=== PATIENT | male | born 1960 | race Caucasian/White ===

== ENCOUNTER 2024-05-04 18:05 | Inpatient (IN) | payer BC, SELFPAY ==
[2024-05-04 16:15] VITALS: BP 112/94
[2024-05-04 16:37] VITALS: BMI 28.9
[2024-05-04 16:40] VITALS: BP 107/73
[2024-05-04 17:00] VITALS: BP 101/72
[2024-05-04 17:03] LABS: % Basophils 0.5 % (0-2); % Eosinophils 1.4 % (0-6); % Immature Granulocytes 0.5 % (0-0.5); % Lymphocytes 16.4 % (20.5-51.1); % Monocytes 5.9 % (1.7-9.3); % Neutrophils 75.3 % (42.2-75.2); Absolute Basophils 0.1 10^3/uL (0-0.2); Absolute Eosinophils 0.2 10^3/uL (0-0.7); Absolute Immature Granulocytes 0.1 10^3/uL (0-0.05); Absolute Lymphocytes 2.5 10^3/uL (1.2-3.4); Absolute Monocytes 0.9 10^3/uL (0.1-0.6); Absolute Neutrophils 11.5 10^3/uL (1.4-6.5); Hematocrit 42.2 % (39.0-52.0); Hemoglobin 13.8 g/dL (13.0-18.0); Mean Corp Hgb Conc. 32.7 g/dL (33.0-37.0); Mean Corpuscular Hgb 29.3 pg (27.0-31.0); Mean Corpuscular Volume 89.6 fL (80.0-94.0); Nucleated Red Blood Cells % 0 % (-); Platelet Count 240 10^3/uL (130-400); Red Blood Cell Count 4.71 10^6/uL (4.70-6.10); Red Cell Dist. Width 13.8 % (11.5-14.5); White Blood Cell Count 15.2 10^3/uL (4.8-10.8)
--- NOTE | 2024-05-04 17:12 | ED.GENMED ---
History of Present Illness
General
Chief Complaint: Vomiting Blood
Source: patient and spouse
Exam Limitations: none
Time Seen by Provider: 05/04/24 17:00
History of Present Illness
History of Present Illness:
64-year-old healthy male presents with sudden onset of lightheadedness disequilibrium followed by vomiting. Vomiting was instantly bright red blood. Vomited x 3. Describing 2 to 300 cc of bright red blood. No pain no chest pain no shortness of
breath no history of same. No NSAIDs. No significant alcohol history.
Past History
Past History
ED Past Medical History: Hypercholesterolemia and NIDDM
ED Past Surgical History: Orthopedic and Other (Meningioma/skin cancer)
Review of Systems
Review of Systems
All Other Systems: Not applicable
Respiratory: Reports no symptoms
Cardiac: Reports no symptoms
ABD/GI: Denies abdominal pain, bloody stools or black stools
Phy Exam
Physical Exam
Physical Exam:
GENERAL: Alert and oriented in no apparent distress. Mildly pale
EYE: Orbits normal.
NECK: Supple, no significant adenopathy.
ENT: Pharynx without erythema
CARDIAC: Mildly tachycardic and regular no murmur
LUNGS: Clear breath sounds,normal
ABDOMEN: Soft, without focal tenderness or distention
NEUROLOGICAL: Alert and oriented , grossly non-focal
SKIN: Warm and dry, no rash or lesion, no discoloration, skin intact.
MUSCULOSKELETAL: No edema,no deformity.Good color
PSYCH: Normal and appropriate interaction.
Course
Orders/Labs/Results
Orders:
Orders
05/04/24 16:47
Type+Screen Urgent
Complete Blood Count/With Diff Urgent
Comprehensive Metabolic Panel Urgent
05/04/24 17:13
Pantoprazole 80 mg/100 ml Nss [Protonix] 80 mg in 100 ml IV NOW
Pantoprazole [Protonix IV] 80 mg IV NOW STA
05/04/24 17:15
CT Chest/abd/pelvis Angio W/wo Urgent
Comment:
Reason For Exam: sudden ugi bleed
IV Insert/Care/Rem.- Treatment PRN
05/04/24 17:19
ABO2 Urgent
BBK Wristband Number:
Associate notified that ABO2 has been ordered: [id number]
Date: 05/04/24
Time: 17:03
Stitchdown Toe Former ID: [id number]
05/04/24 17:24
0.9% Sodium Chloride 1000 ml [Nss] 1,000 ml IV BOLUS
05/04/24 17:44
Admit/Transfer Patient As Directed
Co-Sign Provider:
Level of Care: Inpatient admission
Assign to:: Medical/Surgical
Physician / Group: alexander
Diagnosis: GI bleed
Reason for Hospitalization: GI bleed
Expected length of stay greater than two midnights?: Yes
ELOS- Estimated Length of Stay in days: 3
I certify the patient meets the requirements for IP care: Yes
PRN Pain Medication Management As Directed
May give lesser potent ordered pain med per pt: Yes
preference::
Protocol:: Medication orders for pain may be administered in a
manner that supports deferring to patient preference
when the pt is:
- Requesting an ordered lesser potent pain medication.
Least to most potent pain medications are defined
as: acetaminophen < NSAID < tramadol < opioids
(morphine, oxycodone, hydromorphone).
- Requesting a lesser dose of the same medication IF
ORDERED.
- Requesting a less intrusive route of administration
if both routes are prescribed by the provider (PO <
IV).
05/04/24 17:45
Code Status As Directed
Resuscitation Status: Full Code
Abnormal Lab Results
05/04/24
16:47
WBC 15.2 H 10^3/uL
(4.8-10.8)
MCHC 32.7 L g/dL
(33.0-37.0)
Abs Immat Gran (auto) 0.1 H 10^3/uL
(0-0.05)
Absolute Neuts (auto) 11.5 H 10^3/uL
(1.4-6.5)
Absolute Monos (auto) 0.9 H 10^3/uL
(0.1-0.6)
Neutrophils % 75.3 H %
(42.2-75.2)
Lymphocytes % 16.4 L %
(20.5-51.1)
BUN 30 H mg/dl
(9-20)
Glucose 144 H mg/dl
(70-99)
Alkaline Phosphatase 36 L U/L
(38-126)
Total Protein 6.2 L g/dl
(6.3-8.2)
05/04/24 16:47
05/04/24 16:47
Vital Signs
Initial and Last Documented VS:
Initial Vital Signs
Pulse Resp BP Pulse Ox
127 20 112/94 96
05/04/24 16:15 05/04/24 16:15 05/04/24 16:15 05/04/24 16:15
Last Documented Vital Signs
Temp Pulse Resp BP Pulse Ox
98.5 F 97 18 121/77 94
05/04/24 16:20 05/04/24 18:45 05/04/24 18:45 05/04/24 18:00 05/04/24 18:45
MDM/Problems Addressed
Differential Diagnosis Includes:
Patient describing sudden onset of upper GI bleed. Described as a fairly significant amount. Bright red blood. No nosebleed no blood in the oropharynx. Abdomen is nontender. Not describing a Simi-Kim tear. No history of varices or
cirrhosis. No history of NSAIDs. Discussed with GI. Start Protonix. CT angiography. 2 IVs. IV fluids. Consent signed. Admit to medicine.
*Radiology
Radiology exam reviewed: radiology read reviewed (Heterogeneous material in the stomach. No aneurysm. No obvious bleeding source)
*Pulse Oximetry
Patient hypoxic: no
*Hand I Tube Bender Interpretation
Rate: tachycardiac
Interpretation: abnormal
Heart Rate: 104
Rhythm: sinus
*Critical Care Note
Total Time (30-74mins, 75-104mins- exclusive of procedures): 45
ED Attending Note
-
Portions of this chart may have been created with voice recognition software.� Occasional wrong word or��sound alike� substitutions may have occurred due to the inherent limitations of voice recognition software.
Discharge Plan
Departure
Patient Disposition: Admit
Date of Disposition: 05/04/24
Time of Disposition: 17:30
Presentation/result/management discussed w/ accepting MD/DO: Do(GI)
Discharge Problem:
Upper GI bleed
Interventions
Interventions:
*Risk Screen - Suicide Last Done: 05/04/24 16:15
*General Assessment Last Done: 05/04/24 16:15
*Neglect/Abuse Screening Last Done: 05/04/24 16:15
ED- Fall Risk Assessment Last Done: 05/04/24 16:37
*ED COVID-19 Vaccine History Last Done: 05/04/24 16:37
HI-Edhkzq-Tfhcpzmcnd Assessment Last Done: 05/04/24 16:53
ED- Cardiac Assessment Last Done: 05/04/24 16:53
ED- Pulmonary Assessment Last Done: 05/04/24 16:53
[2024-05-04] MEDS: PROTONIX IV 80 MG IV (17:23)
[2024-05-04 17:28] LABS: ALT (SGPT) 26 U/L (0-50); AST (SGOT) 23 U/L (17-59); Albumin 4.1 g/dl (3.5-5.0); Alkaline Phosphatase 36 U/L (38-126); Blood Urea Nitrogen 30 mg/dl (9-20); Calcium 9.2 mg/dl (8.4-10.2); Carbon Dioxide 22 mmol/L (22-30); Chloride 106 mmol/L (98-107); Estimated Creatinine Clearance 95 ml/min; Glucose 144 mg/dl (70-99); Potassium 4.7 mmol/L (3.5-5.1); Sodium 140 mmol/L (135-145); Total Bilirubin 0.2 mg/dl (0.2-1.3); Total Protein 6.2 g/dl (6.3-8.2); eGFR > 60.00
--- NOTE | 2024-05-04 17:30 | HPS.HSE ---
Family Physician
-
Family Physician:
Chief Complaint
-
vomiting
History of Present Illness
64-year-old with PMH for type 2 Dm, HLD presents with sudden onset of lightheadedness disequilibrium followed by vomiting. Vomiting was instantly bright red blood. Vomited x 3. No pain no chest pain no shortness of breath he takes ibuprofen as
needed. he took 600mg on Monday. denied abdominal pain or rectal bleed. denied dysuria or hematuria.
hgb stable. admitting for further management.
stated coloscopy five years ago.
Medical History
Past Medical History
Past Medical History: Reports Other
Additional Past Medical History:
Basal cell skin cancer
Right breast lump
Meningioma
Past Surgical History: Reports Other
Additional Past Surgical History:
Right breast lumpectomy
Brain tumor removal
discectomy
LASIK and cataract surgery
Mohs surgery on her right forearm and scalp
Social History
Tobacco: Smoker
Alcohol: Occasional
Drug: None
Personal:
Living: With Family
Family History
Family History: Not pertinent
Allergies / Home Medications
Allergies reflects when Allergies were last updated in [employer].
Home Medications with original date entered in [employer]
Allergy/Medication List:
Allergies
Allergy/AdvReac Type Severity Reaction Status Date / Time
acetaminophen [From Percocet] Allergy Nausea / Verified 05/04/24 16:19
Vomiting
oxycodone [From Percocet] Allergy Nausea / Verified 05/04/24 16:19
Vomiting
Home Medications
aspirin 81 mg chewable tablet 81 mg PO DAILY 05/04/24
cholecalciferol (vitamin D3) 25 mcg (1,000 unit) tablet (Vitamin D3) 25 mcg PO DAILY 05/04/24
ibuprofen 200 mg tablet 600 mg PO DAILYPRN PRN mild pain 05/04/24
metformin 500 mg tablet 500 mg PO BID 05/04/24
peg 400-propylene glycol (PF) 0.4 %-0.3 % eye drops in a dropperette (Systane (PF)) 1 drp BOTH EYES Q6HPRN PRN dry eyes 05/04/24
rosuvastatin 20 mg tablet 20 mg PO DAILY 05/04/24
tadalafil 20 mg tablet 20 mg PO DAILYPRN PRN ed 05/04/24
Review of Systems
-
Constitutional: Reports No Symptoms
EENT: Reports No Symptoms
Respiratory: Reports No Symptoms
Cardiac: Reports No Symptoms
Abdomen/GI: Reports Vomiting
: Reports No Symptoms
Musculoskeletal: Reports No Symptoms
Skin: Reports No Symptoms
Neurological: Reports No Symptoms
Endocrine: Reports No Symptoms
Hematologic/Lymphatic: Reports No Symptoms
Psych: Reports No Symptoms
Physical Exam
Vital Signs
Vital Signs
Temp Pulse Resp BP Pulse Ox
98.5 F 127 20 101/72 94
05/04/24 16:20 05/04/24 16:15 05/04/24 16:15 05/04/24 17:00 05/04/24 17:00
Physical Exam
General: Well Developed, Well Nourished and No Apparent Distress
HEENT: NormoCephalic, Moist mucous membranes and Atraumatic
Respiratory: Clear
Cardiac: S1/S2 and Regular Rhythm; No Murmur or Rub
GI: Soft, Non Tender, Non Distended and Normal Bowel Sounds; No Organomegaly
Rectal: Deferred by Provider
Musculoskeletal: No Clubbing, No Cyanosis and No Edema
Skin: No Rash
Neuro: AO x 3 and Nonfocal/grossly intact
Psych: Calm
Laboratory Results
-
05/04/24 16:47
05/04/24 16:47
Laboratory Results
Total Bilirubin 0.2 mg/dl (0.2-1.3) 05/04/24 16:47
AST 23 U/L (17-59) 05/04/24 16:47
ALT 26 U/L (0-50) 05/04/24 16:47
Alkaline Phosphatase 36 U/L (38-126) L 05/04/24 16:47
Data Reviewed
-
Lab Data: Labs Reviewed by me
Impression/Plan
-
# Upper GI bleed
-Hemoglobin stable at 13.8
-CT abdomen pelvis pending
-IV PPI
-NPO
-GI consult
# Leukocytosis likely stress reaction
-WBCs 15.2
-patient is afebrile
-ctm
# Type 2 diabetes
-Sliding scale
-Hold metformin
# Hyperlipidemia
-Statin
# DVT prophylaxis
-SCDs
# CODE STATUS
-Full code
[2024-05-04] MEDS: PROTONIX 100 IV (17:31)
[2024-05-04] MEDS: NSS 1000 IV (17:34)
[2024-05-04 18:00] VITALS: BP 121/77
--- NOTE | 2024-05-04 19:40 | W.PN.UPDATE ---
Update Note
Progress Note Update
Attending addendum
64-year-old man with type 2 Dm, comes in with sudden onset of lightheadedness, disequilibrium and then vomiting. Vomiting was instantly bright red blood. Vomited x 3. No pain no chest pain, shortness of breath. He takes ibuprofen as needed, and
he took 600mg on Monday. He also takes 81 mg of ASA daily.
Past Medical History
Basal cell skin cancer
Right breast lump
Meningioma
Past Surgical History: Reports Other
Additional Past Surgical History:
Right breast lumpectomy
Brain tumor removal
discectomy
LASIK and cataract surgery
Mohs surgery on her right forearm and scalp
Physical Exam
General: Well Developed, Well Nourished and No Apparent Distress
HEENT: NormoCephalic, Moist mucous membranes and Atraumatic
Respiratory: Clear
Cardiac: S1/S2 and Regular Rhythm; No Murmur or Rub
GI: Soft, Non Tender, Non Distended and Normal Bowel Sounds; No Organomegaly
Psych: Calm
Impression/Plan
1. Upper GI bleed
NPO
IV PPI
GI consult
2. Please see midlevel for full details on:
Leukocytosis
Type 2 diabetes
Hyperlipidemia
[2024-05-04 19:45] VITALS: BP 114/68; BMI 30.2
--- NOTE | 2024-05-04 22:35 | PTCARENOTE ---
1943 Received patient from ED via stretcher with spouse at bedside. Medsurg orders. VSS> afebrile, HR 92, RR 18, BP 114/68, pox 97% room air.
No c/o pain. Patient AAOx3, steady on his feet. PPI infusing 8mg/hr through RAC#20. PMH, medications, and plan of care reviewed by this RN and patient. Patient oriented to room, call flynn within reach.
[2024-05-04 23:10] VITALS: BP 100/60; BP 105/64; BP 98/43; PULSE 71; PULSE 83; PULSE 92
[2024-05-05 00:09] LABS: Glucose - Point of Care 118 mg/dl (70-99)
[2024-05-05 01:49] LABS: Hematocrit 33.1 % (39.0-52.0); Hemoglobin 11.1 g/dL (13.0-18.0)
[2024-05-05 03:35] VITALS: BP 102/58; BP 108/59; BP 98/54; PULSE 67; PULSE 75; PULSE 87
[2024-05-05 06:13] LABS: Glucose - Point of Care 120 mg/dl (70-99)
[2024-05-05 07:00] VITALS: BP 106/64; BP 108/62; BP 111/64; BP 92/65; PULSE 69; PULSE 70; PULSE 82
[2024-05-05 08:15] LABS: Glucose - Point of Care 129 mg/dl (70-99)
[2024-05-05] MEDS: CRESTOR 20 MG PO (08:45)
[2024-05-05] MEDS: PROTONIX IV 40 MG IV ×2 (08:45→20:06)
[2024-05-05] MEDS: FLUSH (NSS) 1 FLUSH IV (08:46)
[2024-05-05] MEDS: NSS (PRESERVATIVE FREE) 10 ML IV ×2 (08:46→20:06)
[2024-05-05 09:09] LABS: Hematocrit 34.8 % (39.0-52.0); Hemoglobin 11.7 g/dL (13.0-18.0)
[2024-05-05 09:14] LABS: Hematocrit 35.2 % (39.0-52.0); Hemoglobin 11.7 g/dL (13.0-18.0); Mean Corp Hgb Conc. 33.2 g/dL (33.0-37.0); Mean Corpuscular Hgb 30.2 pg (27.0-31.0); Mean Platelet Volume 9.8 fL (7.4-10.4); Platelet Count 178 10^3/uL (130-400); Red Blood Cell Count 3.87 10^6/uL (4.70-6.10); White Blood Cell Count 7.7 10^3/uL (4.8-10.8)
[2024-05-05 09:24] LABS: Blood Urea Nitrogen 39 mg/dl (9-20); Calcium 8.5 mg/dl (8.4-10.2); Carbon Dioxide 27 mmol/L (22-30); Chloride 109 mmol/L (98-107); Estimated Creatinine Clearance 106 ml/min; Glucose 123 mg/dl (70-99); Potassium 4.5 mmol/L (3.5-5.1); Sodium 141 mmol/L (135-145); eGFR > 60.00
--- NOTE | 2024-05-05 11:44 | W.PN.HOSP.TC ---
Today's Communication/Plan
-
monitor vitals
see plan
IV PPI
Continue to monitor bleeding
Clears
GI
Assessment / Plan
Assessment / Plan
General: Well Developed, Well Nourished and No Apparent Distress
HEENT: NormoCephalic, Moist mucous membranes and Atraumatic
Respiratory: Clear
Cardiac: S1/S2 and Regular Rhythm; No Murmur or Rub
GI: Soft, Non Tender, Non Distended and Normal Bowel Sounds
Musculoskeletal:No Edema
Neuro: AO x 3 and Nonfocal/grossly intact
Psych: Calm
Upper GI bleed
was using intermittent NSAIDS; denies recent travel
no hx of PUD
-CT abdomen pelvis without acute bleed
-IV PPI
clears; NPO past midnight
-GI evaluation
# Leukocytosis likely stress reaction
resolved
-patient is afebrile
-ctm
# Type 2 diabetes
-Sliding scale
-Hold metformin
# Hyperlipidemia
-Statin
# DVT prophylaxis
-SCDs
# CODE STATUS
-Full code
Anticipated Discharge: 24 - 48 hours
Subjective/Interval History
-
Date of Service: May 05, 2024
denies abdominal pain
Objective Data
-
Labs:
Laboratory Results
05/05/24 05/05/24 05/05/24
01:20 08:59 08:59
WBC 7.7
Hgb 11.1 L 11.7 L 11.7 L
Hct 33.1 L 35.2 L
Plt Count
Sodium
Potassium
Chloride
Carbon Dioxide
BUN
Creatinine
Glucose
Calcium
05/05/24 05/05/24
08:59 17:00
WBC
Hgb Pending
Hct 34.8 L Pending
Plt Count 178 D
Sodium 141
Potassium 4.5
Chloride 109 H
Carbon Dioxide 27
BUN 39 H
Creatinine 0.8
Glucose 123 H
Calcium 8.5
Vital Signs:
Vital Signs
Temp Pulse Resp BP Pulse Ox
97.9 F 72 16 108/62 95
05/05/24 07:00 05/05/24 07:00 05/05/24 07:00 05/05/24 07:00 05/05/24 07:00
I&O
05/04/24 05/05/24 05/06/24
06:59 06:59 06:59
Intake Total 80 / 80
Balance 80 / 80
--- NOTE | 2024-05-05 12:17 | PTCARENOTE ---
Pt at bedside. Pt stated, 'My has been O positive his entire life, it is on his dog tag from the and that is what they said when he was getting his brain surgery done at [place] in 2017'. made aware, blood bank called.
MD ordered blood bank tests. Labs to be drawn.
[2024-05-05 12:21] LABS: Glycohemoglobin (HgbA1c) 6.5 % (4.0-5.6)
[2024-05-05 12:22] VITALS: BP 111/63; BP 114/73; BP 125/65; PULSE 70; PULSE 76; PULSE 82
[2024-05-05 12:26] LABS: Glucose - Point of Care 122 mg/dl (70-99)
--- NOTE | 2024-05-05 12:26 | CON.GI ---
Consultation
-
Date/Time Consultation Requested: 05/04/2024 1944
Date/Time Consultation Performed: 05/05/24 1130
Requesting Provider: Marlen DIXON
Performing Provider: Dr Julieta Flores
Reason for Consultation: hematemesis
Medical History
Chief Complaint / HPI
Chief Complaint: vomiting blood
History of Present Illness:
64yo M with h/o DM and HL who presents with acute vomiting of red blood x3. He has once weekly dsyphagia to solid foods. There is reflux and heartburn. He around noon ate steak sandwich it was stuck for some time. Later on after vomiting it up
he noticed 3 episodes of fresh vomiting of pure blood. He is not on AC or NSAIDs. There was some lightheadedness. He presented to ER for evaluation. No prior h/o GIB. No prior EGD.
Past Medical History
Past Medical History: Other (DM, HL dysphagia)
Past Surgical History: Other (Discectomy, Brain tumor removal for meningioma, R breast lumpectomy MOH surgery LASIK)
Social History
Tobacco: Smoker
Alcohol: Occasional
Drug: None
Personal:
Living: With Family
Family History
Family History: Reviewed & Not Pertinent
Allergies / Home Medications
Allergy/AdvReac Type Severity Reaction Status Date / Time
acetaminophen [From Percocet] Allergy Nausea / Verified 05/04/24 16:19
Vomiting
oxycodone [From Percocet] Allergy Nausea / Verified 05/04/24 16:19
Vomiting
�Medication �Instructions �Recorded
aspirin 81 mg chewable tablet 81 mg PO DAILY Blood Clot 05/04/24
Prevention/Tx
cholecalciferol (vitamin D3) 25 25 mcg PO DAILY Supplement 05/04/24
mcg (1,000 unit) tablet (Vitamin
D3)
ibuprofen 200 mg tablet 600 mg PO DAILYPRN PRN mild pain 05/04/24
metformin 500 mg tablet 500 mg PO BID 05/04/24
peg 400-propylene glycol (PF) 0.4 1 drp BOTH EYES Q6HPRN PRN dry eyes 05/04/24
%-0.3 % eye drops in a dropperette
(Systane (PF))
rosuvastatin 20 mg tablet 20 mg PO DAILY High Cholesterol 05/04/24
tadalafil 20 mg tablet 20 mg PO DAILYPRN PRN ed 05/04/24
Review of Systems
-
All other systems: A 12 pt ROS was Negative except as stated above in HPI
Vital Signs
Temp Pulse Resp BP Pulse Ox
97.9 F 72 16 108/62 95
05/05/24 07:00 05/05/24 07:00 05/05/24 07:00 05/05/24 07:00 05/05/24 07:00
Physical Exam
Exam
GEN: No acute distress, conversant, pleasant
HEENT: anicteric, extraocular movements intact, clear oropharynx without exudates
GI: soft, non-distended, not tender to palpation, normal active bowel sounds, no hepatosplenomegaly
EXT: warm, well perfused, no edema bilaterally
NEURO: AAOx3, non-focal gait steady
Results
WBC 7.7 10^3/uL (4.8-10.8) 05/05/24 08:59
Hgb 11.7 g/dL (13.0-18.0) L 05/05/24 08:59
Hgb 11.7 g/dL (13.0-18.0) L 05/05/24 08:59
Hct 34.8 % (39.0-52.0) L 05/05/24 08:59
Hct 35.2 % (39.0-52.0) L 05/05/24 08:59
MCV 91.0 fL (80.0-94.0) 05/05/24 08:59
Plt Count 178 10^3/uL (130-400) D 05/05/24 08:59
Absolute Neuts (auto) 11.5 10^3/uL (1.4-6.5) H 05/04/24 16:47
Sodium 141 mmol/L (135-145) 05/05/24 08:59
Potassium 4.5 mmol/L (3.5-5.1) 05/05/24 08:59
Chloride 109 mmol/L (98-107) H 05/05/24 08:59
Carbon Dioxide 27 mmol/L (22-30) 05/05/24 08:59
BUN 39 mg/dl (9-20) H 05/05/24 08:59
Creatinine 0.8 mg/dL (0.7-1.3) 05/05/24 08:59
Calcium 8.5 mg/dl (8.4-10.2) 05/05/24 08:59
Total Bilirubin 0.2 mg/dl (0.2-1.3) 05/04/24 16:47
AST 23 U/L (17-59) 05/04/24 16:47
ALT 26 U/L (0-50) 05/04/24 16:47
Alkaline Phosphatase 36 U/L (38-126) L 05/04/24 16:47
Diagnostic Image Results:
CTCAP IV contrast 1.No aortic aneurysm or dissection. No evidence of active GI bleed.
2. Mildly distended stomach with heterogeneous fluid contents.
3. Mild prostatomegaly.
Prior GI Procedures:
EGD: none prior
Colonoscopy: 5yrs ago [facility] normal per pt. Records not available for my review
Assessment / Plan
-
64yo M with DM and HL who presents with hematemesis x3 in setting of acute food impaction. Chronic food dysphagia 1x/wk with GERD.
Impression
- Hematemesis
Suspect tate zheng tear, hiatal hernia or esophagitis in setting of food impaction
- Chronic solid dysphagia
- GERD
- DM
- HL
Recommendations
- Protonix IV BID
- CLD, NPO at [place] for EGD tomorrow
- Serial H/H thus far stable
Will follow with you
Data Reviewed
-
CT Scan: Report Reviewed by me
-
-
Thank you for consultation and allowing me to participate in the patient's care. Please call the customs and border protection officer GI physician during the after hours with any questions or concerns.
[2024-05-05 15:00] VITALS: BP 103/63; BP 104/63; BP 110/63; PULSE 64; PULSE 68; PULSE 78
--- NOTE | 2024-05-05 16:25 | CM ---
Reviewed chart, met with patient to obtain information for assessment. Patient stated that he lives with his spouse in a single one story home with one step to enter. He described himself as independent with ADLs, personal care, dressing and
bathing. 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 He drives and can get to his appointments and do all of his own shopping. He denied any DME in his home.
He has never had VN services.
He has not been to a SNF.
Patient has a prescription plan and uses, [facility] in [place] for all of his medications.
Patient's PCP is, Dr. Brett Guerra.
Patient stated that he is already feeling better and does not anticipate that he will have any needs at discharge.
Plan: Case management will continue to follow and assist with discharge planning. Home when stable.
[2024-05-05 16:38] LABS: Glucose - Point of Care 97 mg/dl (70-99)
[2024-05-05 18:18] LABS: Hematocrit 33.4 % (39.0-52.0)
[2024-05-05 21:33] LABS: Glucose - Point of Care 114 mg/dl (70-99)
[2024-05-05 23:45] VITALS: BP 103/66
[2024-05-06 05:40] LABS: Glucose - Point of Care 136 mg/dl (70-99)
[2024-05-06 06:00] VITALS: BMI 29.3
[2024-05-06 06:34] LABS: % Basophils 0.7 % (0-2); % Eosinophils 3.1 % (0-6); % Immature Granulocytes 0.3 % (0-0.5); % Lymphocytes 35.8 % (20.5-51.1); % Monocytes 6.5 % (1.7-9.3); % Neutrophils 53.6 % (42.2-75.2); Absolute Basophils 0.1 10^3/uL (0-0.2); Absolute Eosinophils 0.2 10^3/uL (0-0.7); Absolute Lymphocytes 2.7 10^3/uL (1.2-3.4); Absolute Monocytes 0.5 10^3/uL (0.1-0.6); Hematocrit 35.1 % (39.0-52.0); Hemoglobin 11.5 g/dL (13.0-18.0); Mean Corp Hgb Conc. 32.8 g/dL (33.0-37.0); Mean Corpuscular Hgb 29.8 pg (27.0-31.0); Mean Corpuscular Volume 90.9 fL (80.0-94.0); Mean Platelet Volume 9.9 fL (7.4-10.4); Nucleated Red Blood Cells % 0 % (-); Platelet Count 184 10^3/uL (130-400); Red Blood Cell Count 3.86 10^6/uL (4.70-6.10); Red Cell Dist. Width 13.8 % (11.5-14.5); White Blood Cell Count 7.4 10^3/uL (4.8-10.8)
[2024-05-06 06:53] LABS: Blood Urea Nitrogen 21 mg/dl (9-20); Calcium 8.6 mg/dl (8.4-10.2); Carbon Dioxide 26 mmol/L (22-30); Chloride 106 mmol/L (98-107); Estimated Creatinine Clearance 84 ml/min; Glucose 128 mg/dl (70-99); Potassium 4.5 mmol/L (3.5-5.1); Sodium 139 mmol/L (135-145); eGFR > 60.00
[2024-05-06 07:25] VITALS: BP 103/58
[2024-05-06] MEDS: PROTONIX IV 40 MG IV (08:01)
[2024-05-06] MEDS: CRESTOR 20 MG PO (08:01)
[2024-05-06] MEDS: NSS (PRESERVATIVE FREE) 10 ML IV (08:01)
[2024-05-06] MEDS: FLUSH (NSS) 2 FLUSH IV (08:03)
[2024-05-06 09:05] VITALS: BP 95/58
[2024-05-06 09:12] VITALS: BP 95/70
[2024-05-06 09:15] VITALS: BP 108/58
[2024-05-06 09:15] LABS: Glucose - Point of Care 131 mg/dl (70-99)
[2024-05-06 09:30] VITALS: BP 114/65
[2024-05-06 10:00] VITALS: BP 110/68
--- NOTE | 2024-05-06 10:26 | W.PN.HOSP.TC ---
Today's Communication/Plan
-
d/c
Assessment / Plan
Assessment / Plan
Gen: NAD, AAOx3.
Eyes: EOMI, PERRLA, no scleral icterus.
Neck: supple.
CV: RRR, +S1/S2, no m/r/g.
Resp: CTAB, no rales, wheezes, or rhonchi.
Abd: +BS, soft, NT, ND
Skin: No rashes.
Neuro: CN 2-12 intact, non-focal.
Psych: Normal mood and affect.
CTA A/P:
1. No aortic aneurysm or dissection. No evidence of active GI bleed.
2. Mildly distended stomach with heterogeneous fluid contents.
3. Mild prostatomegaly.
Acute blood loss anemia due to acute UGIB:
-was using intermittent NSAIDS
-CT A/P above and without acute bleed
-was on IV PPI, d/c on Protonix daily
-ECG 05/06/24: Gastritis, esophagitis, duodenitis
-GI following, case discussed with Dr. Flores. Diet advanced, likely d/c later today.
Other problems:
Leukocytosis, likely stress reaction, resolved
DM2: SSI/accuchecks, holding home metformin
Hyperlipidemia: cont statin
FULL/SCDs
Total time spent on d/c = 31 min. This included today's physical exam, progress note, review of laboratory and diagnostic data, preparation of discharge documents and prescriptions, and discussions about the pt's hospital course and discharge plan
with the patient and other medical office receptionist involved in the patient's care.
Anticipated Discharge: Today
Subjective/Interval History
-
Date of Service: May 06, 2024
No new complaints.
Objective Data
-
Labs:
Laboratory Results
05/06/24
05:34
WBC 7.4
Hgb 11.5 L
Hct 35.1 L
Plt Count 184
Sodium 139
Potassium 4.5
Chloride 106
Carbon Dioxide 26
BUN 21 H
Creatinine 0.9
Glucose 128 H
Calcium 8.6
Vital Signs:
Vital Signs
Temp Pulse Resp BP Pulse Ox
98.2 F 63 17 110/68 97
05/06/24 10:00 05/06/24 10:00 05/06/24 10:00 05/06/24 10:00 05/06/24 10:00
I&O
05/05/24 05/06/24 05/07/24
06:59 06:59 06:59
Intake Total 80 / 80 780 / 780
Balance 80 / 80 780 / 780
[2024-05-06 11:21] LABS: Glucose - Point of Care 148 mg/dl (70-99)
--- NOTE | 2024-05-06 11:34 | CM ---
CM reviewed chart and noted dc order
Bedside meeting with pt and spouse
No dc needs identified
Discharge Disposition- home, no needs- spouse transport
--- NOTE | 2024-05-06 15:11 | W.DCSUMMARY ---
Discharge Summary
Discharge Data
Date of Admission: 05/04/24
Date of Discharge: 05/06/24
-
Pending Results: No
Hospital Course
Primary diagnoses:
Acute blood loss anemia due to acute upper gastrointestinal bleeding due to esophagitis, gastritis, and duodenitis
Secondary diagnoses:
Leukocytosis, likely stress reaction
Type 2 diabetes mellitus
Hyperlipidemia
Consultants:
Gastroenterology
Imaging:
CTA A/P:
1. No aortic aneurysm or dissection. No evidence of active GI bleed.
2. Mildly distended stomach with heterogeneous fluid contents.
3. Mild prostatomegaly.
Hospital course: 64-year-old male who presented with hematemesis as outlined in the H&P done on admission. The patient had been intermittently using NSAIDs. CT A/P above and without acute bleed. Patient was made n.p.o. and placed on IV fluids and
IV proton pump inhibitor. Hemoglobin was 13.8 on admission, dropped to 11.1 and was stable thereafter. ECG 05/06/24 showed Gastritis, esophagitis, duodenitis. Diet advanced and the patient tolerated solid food prior to discharge. He was discharged
on daily protonix and will need outpatient GI follow up.
Discharge Plan
-
Patient Disposition: Home (Routine Discharge)
Discharge Diagnosis/Procedures: Acute blood loss anemia due to acute upper GI bleeding due to esophagitis, gastritis, and duodenitis
Condition: Good
Diet: Diabetic, Carb Controlled
Activity: No restrictions
Driving Restrictions: As prior to admission
Referrals:
Julieta Flores MD [Active] - in one to two weeks
Brtet Campo DO [Family Provider] - in less than 1 week
Prescriptions:
New
pantoprazole [Protonix] 40 mg tablet,delayed release (DR/EC)
40 mg PO DAILY Qty: 30 0RF
Continued
metformin 500 mg Tablet
500 mg PO BID
rosuvastatin 20 mg Tablet
20 mg PO DAILY
tadalafil 20 mg Tablet
20 mg PO DAILYPRN PRN (Reason: ed)
Systane (PF) 0.4-0.3 % Dropperette
1 drp BOTH EYES Q6HPRN PRN (Reason: dry eyes)
cholecalciferol (vitamin D3) [Vitamin D3] 25 mcg (1,000 unit) Tablet
25 mcg PO DAILY
Discontinued
ibuprofen 200 mg Tablet
600 mg PO DAILYPRN PRN (Reason: mild pain)
aspirin 81 mg Tablet,Chewable
81 mg PO DAILY
Discharge Orders:
Discharge Patient (As Directed); Ordered 05/06/24
Ordered By: Atul Shelton
Discharge Date and Time
Discharge Date/Time: 05/06/24 11:51
Print Language: MAORI
== END 2024-05-06 11:51 | disposition home or self-care (01) | DRG 368 ==
LOC: 3 WEST ACU 18:05
PROVIDERS: Internal Medicine; Registered Nurse; Student in an Organized Health Care Education/Training Program; ADMITTING PHYSICIAN Internal Medicine; ATTENDING PHYSICIAN Internal Medicine; CONSULT PHYSICIAN Internal Medicine Gastroenterology; EMERGENCY PHYSICIAN Emergency Medicine; FAMILY PHYSICIAN Internal Medicine
PROC: 0DB98ZX Excision of Duodenum, Via Natural or Artificial Opening Endoscopic, Diagnostic (ICD-10-PCS; 2024-05-06)
PROC: 0DB78ZX Excision of Stomach, Pylorus, Via Natural or Artificial Opening Endoscopic, Diagnostic (ICD-10-PCS; 2024-05-06)
DX: K21.01 Gastro-esophageal reflux disease with esophagitis, with bleeding (principal); K29.71 Gastritis, unspecified, with bleeding; K29.81 Duodenitis with bleeding; D62 Acute posthemorrhagic anemia; D72.829 Elevated white blood cell count, unspecified; E11.9 Type 2 diabetes mellitus without complications; E78.00 Pure hypercholesterolemia, unspecified; F17.200 Nicotine dependence, unspecified, uncomplicated; Z88.5 Allergy status to narcotic agent; Z79.84 Long term (current) use of oral hypoglycemic drugs; Z79.82 Long term (current) use of aspirin
CPT/HCPCS: 88305; 71275; 74174; 80048; 80053; 82962; 83036; 85014; 85018; 85025; 85027; 86850; 86900; 86901; 88342; 96365; 96366; 99291; 99406; Q9967

== ENCOUNTER → 2024-05-30 07:19 | Outpatient (REF) | payer BC, SELFPAY | LOC: RAD 07:19 | PROVIDERS: ATTENDING PHYSICIAN Internal Medicine | DX: Z87.891 Personal history of nicotine dependence (principal) | CPT/HCPCS: 93880 ==

== ENCOUNTER 2024-11-12 06:19 | Day surgery (SDC) | payer BC, SELFPAY ==
[2024-11-12 07:41] LABS: Glucose - Point of Care 210 mg/dl (70-99)
== END 2024-11-12 09:21 | disposition home or self-care (01) ==
LOC: GI 06:19
PROVIDERS: ATTENDING PHYSICIAN Internal Medicine Gastroenterology
DX: Z12.11 Encounter for screening for malignant neoplasm of colon (principal); K57.30 Diverticulosis of large intestine without perforation or abscess without bleeding; K64.8 Other hemorrhoids; D12.5 Benign neoplasm of sigmoid colon; K63.5 Polyp of colon; K62.1 Rectal polyp; K52.9 Noninfective gastroenteritis and colitis, unspecified; Z80.0 Family history of malignant neoplasm of digestive organs; Z86.0100 Personal history of colon polyps, unspecified
CPT/HCPCS: 45380; 82962; 88305